=== PATIENT | female | born 1950 | race Caucasian/White ===

== ENCOUNTER 2025-05-16 11:39 | Day surgery (SDC) | payer MEDICARE, OTHER ==
[~2025-05-16] VITALS: Ht 152.4 cm; Wt 57.0 kg
[~2025-05-16 11:39] MED LIST: Aspir 8181 MG PO; Balanced Salt Epinephrine Irrigation Solution 500 mL IR SCH; FISH OIL 1,2001 EACH PO; HYDACE5 PO; Moxifloxacin HCL 0.5 MG/0.1 ML 0.4MLSYR LEFTEYE SCH; NS 500 ML IV ONE; PHENYLEPHRINE\\TROPICAMIDE\\TETRACAINE OPHTHALMIC DILATING SOLN LEFTEYE PRN; Povidone-Iodine 450 DROP/30 ML Solution LEFTEYE SCH; Povidone-Iodine 450 DROP/30 ML Solution ONE; Red Yeast Rice600 MG PO; SUPER CALCIUM1 EACH PO; Tetracaine HCl/Pf 0.5% Opth Soln 4 ml ONE; Triamcinolone Inj Susp 40 MG / ML 1ML Vial INJ SCH; Triamcinolone Inj Susp 40 MG / ML 1ML Vial ONE
[2025-05-16] MEDS ORDERED: BRIMONIDINE TART5 M2 OP (12:08)
[2025-05-16] MEDS ORDERED: ISTALOL2.5 M1 LEFTEYE (12:08)
[2025-05-16] MEDS ORDERED: OLMESARTAN MEDO40 MG PO (12:09)
[2025-05-16] MEDS ORDERED: EZETIMIBE10 M6 PO (12:09)
[2025-05-16] MEDS ORDERED: AMLODIPINE BESYL5 MG PO (12:09)
[2025-05-16] MEDS ORDERED: NS 500 ML IV ONE (12:15)
[2025-05-16] MEDS ORDERED: Midazolam HCl 1MG / ML 2ML Vial ONE (12:47)
[2025-05-16] MEDS ORDERED: FentaNYL Citrate 50 MCG/ML 2 ML Injection ONE (12:48)
[2025-05-16 13:16] VITALS: BP 95/47
--- NOTE | 2025-05-16 13:21 | NUR ---
05/16/[address] IN AT BEDSIDE
== END 2025-05-16 13:30 | disposition home or self-care (01) ==
LOC: ORSCSDS 11:39
PROVIDERS: Ophthalmology
PROC: 08RK3JZ Replacement of Left Lens with Synthetic Substitute, Percutaneous Approach (ICD-10-PCS; principal; 2025-05-16 13:00)
DX: H25.812 Combined forms of age-related cataract, left eye (principal); H40.031 Anatomical narrow angle, right eye; I10 Essential (primary) hypertension; H34.8110 Central retinal vein occlusion, right eye, with macular edema; E78.5 Hyperlipidemia, unspecified; H35.89 Other specified retinal disorders; Z87.891 Personal history of nicotine dependence; Z79.82 Long term (current) use of aspirin; Z79.899 Other long term (current) drug therapy
CPT/HCPCS: J2250; J3010; J3301; J7040; V2632